=== PATIENT | male | born 1980 | race African-American/Black ===

== ENCOUNTER 2017-04-14 16:53 | Emergency (ER) | payer OTHER ==
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
== END 2017-04-14 19:55 | disposition home or self-care (01) ==
LOC: SED 16:53
DX: S16.1XXA Strain of muscle, fascia and tendon at neck level, initial encounter (principal); S39.012A Strain of muscle, fascia and tendon of lower back, initial encounter; F17.210 Nicotine dependence, cigarettes, uncomplicated; V49.9XXA Car occupant (driver) (passenger) injured in unspecified traffic accident, initial encounter
CPT/HCPCS: 72040; 72100; 99284